=== PATIENT | male | born 2000 | race Two or more races ===

== ENCOUNTER 2022-03-21 11:34 | Emergency (ER) | payer MEDICAID, OTHER ==
[~2022-03-21] VITALS: Ht 172.7 cm; Wt 65.9 kg
[2022-03-21 13:30] VITALS: BP 135/79
[2022-03-21] MEDS ORDERED: DOXY-338 PO (13:59)
[2022-03-21] MEDS ORDERED: NAPR500T31 PO (13:59)
== END 2022-03-21 14:10 | disposition home or self-care (01) ==
LOC: ER 11:34
DX: N45.1 Epididymitis (principal); N50.3 Cyst of epididymis; Z79.2 Long term (current) use of antibiotics; Z79.899 Other long term (current) drug therapy
CPT/HCPCS: 76870